=== PATIENT | female | born 1975 | race Caucasian/White ===

== ENCOUNTER 2025-01-23 15:21 | Outpatient (CLI) | payer MEDICAID ==
--- NOTE | 2025-01-23 20:05 | VASCULAR REPORT ---
Bilateral lower extremity venous mapping Date: 01/23/2025 04:05 PM Clinical History: edema Comparison: None Findings: Duplex Doppler evaluation of the right and left lower extremity superficial veins was performed inclu ding color Doppler and spectral/pulsed waveform analysis. Measurements are provided below. RIGHT GREAT SAPHENOUS VEIN (GSV): 5.3 mm at the proximal thigh, normal compressibility with no mural thickening or thrombosis. 2.7 mm at the mid thigh, normal compressibility with no mural thickening or thrombosis. 3,2 mm at the distal thigh, normal compressibility with no mural thickening or thrombosis. The GSV is patent on duplex Doppler evaluation. RIGHT SMALL SAPHENOUS VEIN (SSV): 2.8 mm at the proximal calf, normal compressibility with no mural thickening or thrombosis. 2.7 mm at the mid calf, normal compressibility with no mural thickening or thrombosis. 1.9 mm at the distal calf, normal compressibility with no mural thickening or thrombosis. The SSV is patent on duplex Doppler evaluation. LEFT GREAT SAPHENOUS VEIN (GSV): 3.5 mm at the proximal thigh, normal compressibility with no mural thickening or thrombosis. 2.3 mm at the mid thigh, normal compressibility with no mural thickening or thrombosis. 2.2 mm at the distal thigh, normal compressibility with no mural thickening or thrombosis. The GSV is patent on duplex Doppler evaluation. LEFT SMALL SAPHENOUS VEIN (SSV): 3.7 mm at the proximal calf, normal compressibility with no mural thickening or thrombosis. 2.2 mm at the mid calf, normal compressibility with no mural thickening or thrombosis. 2 mm at the distal calf, normal compressibility with no mural thickening or thrombosis. The SSV is patent on duplex Doppler evaluation. IMPRESSION: Lower extremity superficial venous mapping as detailed above. No DVT. Right lower extremity :Deep venous reflux seen in the popliteal vein. Incompetent saphenofemoral laure ction greater saphenous vein in the thigh and calf is associated varicose vein measuring up to 4.4 mm in the thigh and 3 mm in the calf. Incompetent small saphenous vein with associated varicose vein me asuring 2.4 mm. Left lower extremity: Deep venous reflux seen in the common femoral vein. Incompetent saphenofemoral junction and greater saphenous vein with associated close vein measuring 2.6 mm in the calf. The ant erior accessory vein also displaced reflux suggesting incompetency. The short saphenous vein displac ed reflux throughout the calf, indicating incompetency. END IMPRESSION:
== END 2025-01-23 23:59 | disposition home or self-care (01) ==
LOC: VAS 15:21
PROVIDERS: ATTEND Physician Assistant
DX: I87.2 Venous insufficiency (chronic) (peripheral) (principal); I83.893 Varicose veins of bilateral lower extremities with other complications
CPT/HCPCS: 93970